=== PATIENT | male | born 1995 | race Caucasian/White ===

== ENCOUNTER 2020-03-12 06:25 | Emergency (ER) | payer MEDICAID ==
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
[2020-03-12 07:25] VITALS: BP 143/91; PULSE 78
[2020-03-12 07:26] VITALS: O2SAT 100
== END 2020-03-12 07:26 | disposition home or self-care (01) ==
LOC: ED 06:25
DX: F41.0 Panic disorder [episodic paroxysmal anxiety] (principal); F43.10 Post-traumatic stress disorder, unspecified
CPT/HCPCS: 99283